=== PATIENT | female | born 1980 | race Hispanic/Latino ===

== ENCOUNTER 2018-04-15 20:03 | Emergency (ER) | payer OTHER ==
[2018-04-15 20:21] VITALS: BP 143/94; PULSE 77; RESP 22; TEMP 98.5; O2SAT 97
--- NOTE | 2018-04-15 21:02 | ED PDOC ---
HPI: Allergic Reaction Time Seen by Provider: 04/15/18 20:46 Chief Complaint (Nursing): Allergic Reaction Chief Complaint (Provider): allergic reaction History Per: Patient History/Exam Limitations: no limitations Possible Cause: Food (walnut) Associated Symptoms: Skin Rash, Trouble Swallowing, Itching Additional Complaint(s): Accidentally ate chocolate with walnut. Started to have itching and throat swelling. Took benadryl and felt better. Then about 1 hour later started to have severe nausea and multiple episodes of vomiting, including vomiting benadryl pills and digested chocolate. Never had reaction like this before, but never fully ate walnuts (always able to realize when it is in her mouth and spit out.) Currently pt only feels some itchy throat and upper chest, but otherwise all symptoms seem to have resolved. Currently 4 month old. PMD None Past Medical History Reviewed: Historical Data, Nursing Documentation, Vital Signs Vital Signs: Last Vital Signs Temp 98.5 F 04/15/18 20:17 Pulse 77 04/15/18 20:17 Resp 22 04/15/18 20:17 BP 143/94 H 04/15/18 20:17 Pulse Ox 97 04/15/18 20:17 - Medical History PMH: No Chronic Diseases - Surgical History Surgical History: - Family History Family History: States: No Known Family Hx - Social History Current smoker - smoking cessation education provided: No - Home Medications Home Medications: Ambulatory Orders Medication Instructions Recorded Epinephrine HCl [Epipen 0.3 mg IM ONCE PRN #0.3 ml 04/15/18 Auto-Injector] - Allergies Allergies/Adverse Reactions: Allergies Allergy/AdvReac Type Severity Reaction Status Date / Time walnut Allergy ANAPHYLAXIS Verified 04/15/18 20:17 Review of Systems ROS Statement: Except As Marked, All Systems Reviewed And Found Negative ENT: Positive for: Mouth Swelling, Throat Swelling Cardiovascular: Positive for: Light Headedness Gastrointestinal: Positive for: Nausea, Vomiting Skin: Positive for: Rash Physical Exam - Reviewed Nursing Documentation Reviewed: Yes Vital Signs Reviewed: Yes - Physical Exam Appears: Positive for: Non-toxic, No Acute Distress Head Exam: Positive for: ATRAUMATIC, NORMOCEPHALIC Skin: Positive for: Warm, Dry Eye Exam: Positive for: EOMI, PERRL ENT: Positive for: Pharynx Is (clear). Negative for: Pharyngeal Erythema, Tonsillar Exudate, Tonsillar Swelling Neck: Positive for: Painless ROM, Supple Cardiovascular/Chest: Positive for: Regular Rate, Rhythm. Negative for: Murmur Respiratory: Positive for: Normal Breath Sounds. Negative for: Wheezing, Respiratory Distress Gastrointestinal/Abdominal: Positive for: Soft. Negative for: Distended Extremity: Positive for: Normal ROM. Negative for: Pedal Edema Lymphatic: Negative for: Adenopathy Neurologic/Psych: Positive for: Alert. Negative for: Motor/Sensory Deficits - ECG O2 Sat by Pulse Oximetry: 97 Disposition - Clinical Impression Clinical Impression: Allergic reaction Counseled Patient/Family Regarding: Studies Performed, Diagnosis, Need For Followup, Rx Given - Disposition Referrals: [facility] [Outside] (FOLLOW UP WITH YOUR DOCTOR OR [facility] IN 24-48 HOURS FOR REEVALUATION) Disposition: Routine/Home Disposition Time: 21:02 Condition: STABLE Additional Instructions: CONTINUE BENADRYL NEEDED FOR ALLERGY SYMPTOMS Prescriptions: Epinephrine HCl [Epipen Auto-Injector] 0.3 mg IM ONCE PRN #0.3 ml PRN Reason: Anaphylaxis Instructions: Food Allergy
== END 2018-04-15 21:10 | disposition home or self-care (01) ==
LOC: H.ER 20:03
DX: T78.40XA Allergy, unspecified, initial encounter (principal)
CPT/HCPCS: 81025; 96372; 99283; J2930